=== PATIENT | female | born 1965 | race Caucasian/White ===

== ENCOUNTER 2017-08-28 18:48 | Emergency (ER) | payer BC, OTHER ==
[2017-08-28] MEDS ORDERED: Morphine 10 MG/ML Syringe IV ONE (19:59)
--- NOTE | 2017-08-28 20:15 | EDM.PDOC ---
ED HPI GENERAL MEDICAL PROBLEM - General Chief Complaint: Lower Extremity Injury/Pain Stated Complaint: PAIN LT ANKLE Time Seen by Provider: 08/28/17 18:50 Source of Information: Reports: Patient, EMS History Limitations: Reports: No Limitations - History of Present Illness INITIAL COMMENTS - FREE TEXT/NARRATIVE: HISTORY AND PHYSICAL: History of present illness: [Patient is brought to the emergency room by EMS complaints of left ankle pain after she slipped on some ice while walking downtown. She states that she had 6 vodka drinks and was snacking prior to slipping and falling. She complains of left ankle pain bilaterally. No history of surgery or previous fractures to this extremity. Comes in via EMS with her ankle in a splint. Denies any chronic medical conditions, and does not take medication regularly. ] Review of systems: As per history of present illness and below otherwise all systems reviewed and negative. Past medical history: As per history of present illness and as reviewed below otherwise noncontributory. Surgical history: As per history of present illness and as reviewed below otherwise noncontributory. Social history: No reported history of drug or alcohol abuse. Family history: As per history of present illness and as reviewed below otherwise noncontributory. Physical exam: HEENT: Atraumatic, normocephalic. Lungs: Clear to auscultation bilaterally Cardiac: Regular rate and rhythm. no murmur gallop click or rub. Extremities: Swelling to bilateral malleoli. Posterior tibial and dorsalis pedal pulses are strong. Neuro: Awake, alert, oriented. Motor and sensory unremarkable throughout. Exam nonfocal. Diagnostics: [Left ankle x-ray] Therapeutics: [Morphine 2 mg IV] Impression: [Fracture dislocation of the left tibiotalar joint Left medial malleolar fracture] Plan: [Consult with Dr. Soco Luz in the ER, who reduces and splints ankle in the ER. She will follow up with the patient in clinic on August 31.] Definitive disposition and diagnosis as appropriate pending reevaluation and review of above. Left ankle Pain Score (Numeric/FACES): 10 - Related Data Allergies Allergy/AdvReac Type Severity Reaction Status Date / Time aspirin Allergy Hives Verified 08/28/17 19:03 Home Meds: Home Meds . [No Known Home Meds] 08/28/17 [History] Past Medical History - Past Health History Medical/Surgical History: Denies Medical/Surgical History Social & Family History - Family History Family Medical History: Noncontributory - Tobacco Use Smoking Status *Q: Current Status Unknown - Recreational Drug Use Recreational Drug Use: No Review of Systems - Review of Systems Review Of Systems: ROS reveals no pertinent complaints other than HPI. ED EXAM, GENERAL - Physical Exam Exam: See Below Course - Vital Signs Last Recorded V/S: Last Vital Signs Temp 100.1 F 08/28/17 18:56 Pulse 107 H 08/28/17 20:10 Resp 18 08/28/17 20:10 BP 145/97 H 08/28/17 20:10 Pulse Ox 97 08/28/17 20:10 - Orders/Labs/Meds Orders: Active Orders 24 hr Category Date Time Status Notify Provider Consults [RC] ASDIRECTED Care 08/28/17 20:27 Active Consult to Physician [CONS] Stat Cons 08/28/17 20:26 Active Ankle 2V Rt [CR] Stat Exams 08/28/17 20:50 Taken Ankle Min 3V Lt [CR] Stat Exams 08/28/17 19:08 Taken Meds: Medications Discontinued Medications Generic Name Dose Route Start Last Admin Trade Name Mendelq PRN Reason Stop Dose Admin Hydromorphone HCl 1 mg 08/28/17 20:37 08/28/17 20:48 Dilaudid IM 08/28/17 20:38 Not Given ONETIME ONE Hydromorphone HCl Confirm 08/28/17 20:36 08/28/17 20:48 Dilaudid Administered 08/28/17 20:37 Not Given Dose 1 mg .ROUTE .STK-MED ONE Hydromorphone HCl 1 mg 08/28/17 20:44 08/28/17 20:40 Dilaudid IV 08/28/17 20:45 1 mg ONETIME ONE Administration Morphine Sulfate 2 mg 08/28/17 19:59 08/28/17 20:05 Morphine IV 08/28/17 20:00 2 mg ONETIME ONE Administration Departure - Departure Time of Disposition: 21:00 Disposition: Home, Self-Care 01 Condition: Good Clinical Impression: Tibial fracture - Discharge Information Referrals: PCP,None [Primary Care Provider] - Forms: ED Department Discharge, ED Summary Discharge Additional Instructions: The following information is given to patients seen in the emergency department who are being discharged to home. This information is to outline your options for follow-up care. We provide all patients seen in our emergency department with a follow-up referral. The need for follow-up, as well as the timing and circumstances, are variable depending upon the specifics of your emergency department visit. If you don't have a primary care physician on staff, we will provide you with a referral. We always advise you to contact your personal physician following an emergency department visit to inform them of the circumstance of the visit and for follow-up with them and/or the need for any referrals to a consulting specialist. The emergency department will also refer you to a specialist when appropriate. This referral assures that you have the opportunity for follow-up care with a specialist. All of these measure are taken in an effort to provide you with optimal care, which includes your follow-up. Under all circumstances we always encourage you to contact your private physician who remains a resource for coordinating your care. When calling for follow-up care, please make the office aware that this follow-up is from your recent emergency room visit. If for any reason you are refused follow-up, please contact the [facility] emergency department at and asked to speak to the emergency department charge nurse. [facility] [address], [address] [place] [address] Follow-up with Dr. Luz as she requests; next Wednesday in her clinic Take medications as she prescribed. Return to ER as needed as discussed. - My Orders Last 24 Hours: My Active Orders 08/28/17 19:08 Ankle Min 3V Lt [CR] Stat 08/28/17 20:26 Consult to Physician [CONS] Stat 08/28/17 20:27 Notify Provider Consults [RC] ASDIRECTED - Assessment/Plan Last 24 Hours: My Active Orders 08/28/17 19:08 Ankle Min 3V Lt [CR] Stat 08/28/17 20:26 Consult to Physician [CONS] Stat 08/28/17 20:27 Notify Provider Consults [RC] ASDIRECTED
[2017-08-28] MEDS ORDERED: HYDROmorphone 1 MG/ML Syringe ONE (20:36)
[2017-08-28] MEDS ORDERED: HYDROmorphone 1 MG/ML Syringe IM ONE (20:37)
[2017-08-28] MEDS ORDERED: HYDROmorphone 1 MG/ML Syringe IV ONE (20:44)
--- NOTE | 2017-08-28 21:54 | PCM.HP ---
H&P History of Present Illness Left ankle Pain Score (Numeric/FACES): 10 - Related Data Allergies/Adverse Reactions: Allergies Allergy/AdvReac Type Severity Reaction Status Date / Time aspirin Allergy Hives Verified 08/28/17 19:03 Home Medications: Home Meds . [No Known Home Meds] 08/28/17 [History] Past Medical History - Past Health History Medical/Surgical History: Denies Medical/Surgical History - Past Surgical History Musculoskeletal Surgical History: Reports: ORIF (right ankle) Social & Family History - Family History Family Medical History: Noncontributory - Tobacco Use Smoking Status *Q: Current Status Unknown - Recreational Drug Use Recreational Drug Use: No Exam - Vital Signs Vital Signs: Last Vital Signs Temp 100.1 F 08/28/17 18:56 Pulse 107 H 08/28/17 20:10 Resp 18 08/28/17 20:10 BP 145/97 H 08/28/17 20:10 Pulse Ox 97 08/28/17 20:10 Weight: 86.183 kg *Q Meaningful Use (ADM) - VTE *Q VTE Criteria *Q: - Stroke *Q Stroke Criteria *Q: - AMI *Q AMI Criteria *Q: Orders Last 24hrs: Active Orders 24 hr Category Date Time Status Notify Provider Consults [RC] ASDIRECTED Care 08/28/17 20:27 Active Consult to Physician [CONS] Stat Cons 08/28/17 20:26 Active Ankle 2V Rt [CR] Stat Exams 08/28/17 20:50 Taken Ankle Min 3V Lt [CR] Stat Exams 08/28/17 19:08 Taken
--- NOTE | 2017-08-28 21:57 | PCM.OPNOTE ---
- General Post-Op/Procedure Note Date of Surgery/Procedure: 08/28/17 Operative Procedure(s): CR left ankle dislocation Post-Op Diagnosis: L ankle fracture/dislocation Anesthesia Technique: Other (see below) (none) Primary Surgeon: Soco EDEN in mLs: 0 Condition: Good Free Text/Narrative:: #[id number]
--- NOTE | 2017-08-28 23:20 | OR ---
SURGEON: Soco Luz MD DATE OF PROCEDURE: 08/28/2017 PREOPERATIVE DIAGNOSIS: Left bimalleolar ankle fracture/dislocation. POSTOPERATIVE DIAGNOSIS: Left bimalleolar ankle fracture/dislocation. PROCEDURE: Closed reduction, left ankle dislocation. GENERAL REPAIRER: None. ANESTHESIA: None. ESTIMATED BLOOD LOSS: 0 mL. TOURNIQUET TIME: 0 minutes. COMPLICATIONS: None. DVT PROPHYLAXIS: None indicated. IMPLANTS USED: None. BRIEF HISTORY: Ely is a 52-year-old female who sustained a fall earlier this evening. She complained of immediate pain in her left ankle. She was evaluated in the emergency room. X-ray showed a left bimalleolar ankle fracture/dislocation. That time, I recommend closed reduction in the emergency room. Risks of the procedure were discussed with the patient and were documented preoperatively. She agreed to proceed. DESCRIPTION OF PROCEDURE: The patient was properly identified. A time-out was performed to ensure correct site and procedure. Preoperative antibiotics were not given. The surgical site was marked preoperatively. A 1 mg of Dilaudid was administered IV. Following this, axial traction was applied to the heel and the ankle dislocation was reduced without difficulty. The patient tolerated the procedure well. Postreduction x-rays confirmed acceptable reduction of the dislocation. She was then placed in a well-padded posterior splint with medial and lateral stabilizing slabs. She will be discharged home from the emergency room tonight. She will follow up with us next week in anticipation of surgical treatment. She is advised to contact us if she has questions or concerns. RESHMA / RAHAT /[id number]
--- NOTE | 2017-08-29 00:50 | CONS ---
DATE OF CONSULTATION: 08/28/2017 DATE OF : 1965 PRIMARY CARE PHYSICIAN: None PCP REASON FOR CONSULT: Left ankle fracture/dislocation. HISTORY OF PRESENT ILLNESS: Ely is a 52-year-old female, who was seen in the emergency room tonight at the request of the emergency room staff for evaluation of the patient with a left bimalleolar ankle fracture/dislocation. The patient states that she fell earlier tonight, injuring her left ankle. She denies any other injuries from the fall. She complained of immediate pain and deformity. She was unable to weight bear. She was brought to the emergency room. X-rays showed a left bimalleolar ankle fracture/dislocation. The patient has no previous history of left ankle pain. She does have a history of previous open reduction and internal fixation of the right ankle. The patient denies distal paralysis or paresthesias. She has had alcohol to drink prior to her presentation to the emergency room. PAST MEDICAL HISTORY: The patient denies. PAST SURGICAL HISTORY: Open reduction and internal fixation of the right ankle. MEDICATIONS: None. ALLERGIES: No known allergies. SOCIAL HISTORY: She currently admits to tobacco use. She denies recreational drug use. She does admit to daily alcohol use. FAMILY HISTORY: Noncontributory. REVIEW OF SYSTEMS: She denies recent fever, chills, cough, shortness of breath, chest pain, nausea, or vomiting. PHYSICAL EXAMINATION: VITAL SIGNS: Height is 5 feet 3 inches, weight 86 kg, blood pressure 145/97, pulse 107, respiratory rate 18, O2 saturation is 97% on room air. GENERAL: On physical exam, this is an alert, well-nourished female, who is lying on the ER stretcher in moderate distress. HEENT: Head is normocephalic and atraumatic. NECK: Supple. CHEST: Showed symmetrical excursions, unlabored. HEART: Regular rate. ABDOMEN: Benign. EXTREMITIES: Exam of the left lower extremity shows obvious deformity at the ankle. Skin integrity is intact. She has no tenderness in leg or knee. She is able to move her toes to command. Sensation is intact throughout the foot. Dorsalis pedis pulse is 2+. IMAGING: X-rays of the left ankle show a posterior dislocation along with a lateral malleolus and posterior malleolus fracture. ASSESSMENT: Left bimalleolar ankle fracture/dislocation. PLAN: At this time, treatment options were discussed with the patient. I recommended closed reduction in the emergency room. Risks of the procedure were discussed with the patient which include, but are not limited to, nonunion, loss of reduction, inability to reduce. The patient seems to understand these risks and would like to proceed. We will plan on performing this later tonight. Following the reduction, the patient will be placed into a well-padded splint. I discussed with the patient that she will require surgical treatment of this fracture in the future. She is instructed to continue with strict elevation over the next few days. We will plan on seeing her back in clinic on Wednesday for re-evaluation. If she does not have significant swelling, we will plan on fixing the fracture later this week. She was discharged home with [facility] [address]. RESHMA / RAHAT /[id number]
--- NOTE | 2017-08-30 16:12 | CR ---
EXAM DATE: 08/28/17 PATIENT'S AGE: 52 Patient: MARIANNA WINTERS Facility: [place], [place] Site . Site : 1965 Study: XRay Extremity Left ankle [id number] 7:17:49 PM Ordering Physician: Doctor Marquez Final Report: INDICATION: fell on ice HISTORY: Fall on ice. COMPARISON: None. TECHNIQUE: Left ankle, 3 portable views. FINDINGS: There is an acute fracture dislocation of the left tibiotalar joint. Oblique fracture deformity of the left medial malleolus. On the lateral view, the distal tibia is anteriorly oriented with respect to the talus. Disruption of the posterior malleolus. There is a bone fragment on the portable AP view adjacent to the medial malleolus. No underlying bone lesion is identified. Subtalar and talonavicular joints are normal. Calcaneal spurring. Boehler`s angle is preserved. Soft tissue swelling. No radiopaque foreign body. On the oblique view, there is medial displacement of the distal tibia with respect to the talar dome. IMPRESSION: 1. Acute fracture dislocation of the left tibiotalar joint. 2. CT may be utilized to further assess, and to assess for injuries of adjacent tendon/ligaments. Dictated by Andre Lu MD @ 08/28/2017 7:48:55 PM Dictated by: Andre Lu MD @ 08/28/2017 19:49:05 (Electronic Signature) Report Signed by Proxy. MOIRA
--- NOTE | 2017-08-30 16:18 | CR ---
EXAM DATE: 08/28/17 PATIENT'S AGE: 52 Patient: MARIANNA WINTERS Facility: [place], [place] Site . Site : 1965 Study: XRay Extremity Left [id number] 8:57:46 PM Ordering Physician: Doctor Marquez Final Report: Indication: POST CLOSED REDUCTION. Technique: Left ankle two views. Comparison: Left ankle 08/28/2017 at 7:08 p.m.. Findings: Displaced obliquely oriented fractures of the lateral malleolus and posterior malleolus are again demonstrated. Displacement of fracture fragments persists, however, alignment has improved. The talar dome appears intact. Soft tissue swelling. Impression: Improved alignment status post reduction. Dictated by Renny Hemphill MD @ 08/28/2017 9:33:17 PM Dictated by: Renny Hemphill MD @ 08/28/2017 21:33:24 (Electronic Signature) Report Signed by Proxy. MOIRA
== END 2017-08-28 21:45 | disposition home or self-care (01) ==
LOC: MW.ED 18:48
DX: S82.52XA Displaced fracture of medial malleolus of left tibia, initial encounter for closed fracture (principal); S93.05XA Dislocation of left ankle joint, initial encounter; Z88.6 Allergy status to analgesic agent; W00.2XXA Other fall from one level to another due to ice and snow, initial encounter
CPT/HCPCS: 27840; 73600; 73610; 96374; 96375; 99284; J1170; J2270

== ENCOUNTER 2017-09-01 08:51 | Day surgery (SDC) | payer BC ==
[~2017-09-01 08:51] MED LIST: Acetaminophen/HYDROcodone 325-10 MG Tab PO PRN; Lactated Ringers 1,000 ML IV SCH; ceFAZolin 2 GM in Premix Bag 1 BAG IV SCH
[2017-09-01] MEDS ORDERED: Sodium Chloride 0.9% 20 ML ONE (09:23)
[2017-09-01] MEDS ORDERED: Lidocaine 2% 5 ML SDV ONE (09:23)
[2017-09-01] MEDS ORDERED: ceFAZolin 1 GM Vial ONE (09:23)
[2017-09-01] MEDS ORDERED: Propofol 200 MG/20 ML SDV ONE (09:23)
[2017-09-01] MEDS ORDERED: fentaNYL 250 MCG/5 ML SDV ONE (09:23)
[2017-09-01] MEDS ORDERED: Midazolam 1 MG/ML 2 ML SDV ONE (09:23)
[2017-09-01] MEDS ORDERED: Ondansetron 4 MG/2 ML SDV ONE (09:24)
--- NOTE | 2017-09-01 11:13 | PCM.PREANE ---
Preanesthetic Assessment - Procedure Proposed Procedure: Fracture bimalleolar left ankle fracture ORIF - Anesthesia/Transfusion/Family Hx Anesthesia History: Prior Anesthesia Without Reaction Family History of Anesthesia Reaction: No Transfusion History: No Prior Transfusion(s) Intubation History: Unknown Additional History: ETOH hx. Smoker - daily. - Review of Systems General: Other (pain in left ankle due to fracture 4 days ago.) Pulmonary: Other (smoker) Cardiovascular: No Symptoms Gastrointestinal: Other (certain foods cause heartburn) Neurological: Difficulty Walking (due to left ankle fracture) Other: Reports: None - Physical Assessment NPO Status Date: 08/31/17 NPO Status Time: 23:00 O2 Sat by Pulse Oximetry: 95 Respiratory Rate: 18 Vital Signs: Last Vital Signs Temp 98.2 F 09/01/17 10:05 Pulse 112 H 09/01/17 10:05 Resp 18 09/01/17 10:05 BP 164/100 H 09/01/17 10:05 Pulse Ox 95 09/01/17 10:05 Height: 5 ft 3 in Weight: 185 lb ASA Class: 2 Mental Status: Alert & Oriented x3 Airway Class: Mallampati = 1 Dentition: Reports: Normal Dentition, [place](s) (#9) Thyro-Mental Finger Breadths: 3 Mouth Opening Finger Breadths: 3 ROM/Head Extension: Full Lungs: Clear to Auscultation, Normal Respiratory Effort, Decreased Breath Sounds (distant) Cardiovascular: Regular Rate, Regular Rhythm - Allergies Allergies/Adverse Reactions: Allergies Allergy/AdvReac Type Severity Reaction Status Date / Time aspirin Allergy Swelling Verified 08/31/17 12:40 - Blood Blood Available: No Product(s) Available: None - Anesthesia Plan Pre-Op Medication Ordered: None - Acknowledgements Anesthesia Type Planned: General Anesthesia (LMA) Pt an Appropriate Candidate for the Planned Anesthesia: Yes Alternatives and Risks of Anesthesia Discussed w Pt/Guardian: Yes Pt/Guardian Understands and Agrees with Anesthesia Plan: Yes PreAnesthesia Questionnaire - Past Health History Medical/Surgical History: Denies Medical/Surgical History HEENT History: Reports: Other (See Below) Other HEENT History: has low night vision, uses reading glasses Respiratory History: Reports: Asthma Other Respiratory History: states "mild", uses OTC inhaler Gastrointestinal History: Reports: GERD Other Gastrointestinal History: no meds for GERD Musculoskeletal History: Reports: Fracture Other Musculoskeletal History: right ankle Neurological History: Reports: Migraines Endocrine/Metabolic History: Reports: Obesity/BMI 30+ - Past Surgical History Head Surgeries/Procedures: Reports: None Musculoskeletal Surgical History: Reports: ORIF Other Musculoskeletal Surgeries/Procedures:: ORIF right ankle, has hardware - SUBSTANCE USE Smoking Status *Q: Current Every Day Smoker Tobacco Use Within Last Twelve Months: Cigarettes Recreational Drug Use History: No - HOME MEDS Home Medications: Home Meds . [No Known Home Meds] 08/28/17 [History] Otc Inhaler 1 dose INH ASDIRECTED PRN 08/31/17 [History] - CURRENT (IN HOUSE) MEDS Current Meds: Current Medications Hydrocodone Bitart/Acetaminophen ([place] 325-10 Mg) 1 - 2 tab PO Q4H PRN PRN Reason: Pain Cefazolin Sodium/Dextrose 2 gm (/ Premix) 50 mls @ 100 mls/hr IV ONCALL APRIL Lactated Ringer's (Ringers, Lactated) 1,000 mls @ 100 mls/hr IV ASDIRECTED APRIL Last Admin: 09/01/17 09:40 Dose: 100 mls/hr Discontinued Medications Cefazolin Sodium (Ancef) Confirm Administered Dose 2 gm .ROUTE .STK-MED ONE Stop: 09/01/17 09:24 Fentanyl (Sublimaze) Confirm Administered Dose 250 mcg .ROUTE .STK-MED ONE Stop: 09/01/17 09:24 Sodium Chloride (Normal Saline) Confirm Administered Dose 20 mls @ as directed .ROUTE .STK-MED ONE Stop: 09/01/17 09:24 Lidocaine (Xylocaine-Mpf 2%) Confirm Administered Dose 10 ml .ROUTE .STK-MED ONE Stop: 09/01/17 09:24 Midazolam HCl (Versed 1 Mg/Ml) Confirm Administered Dose 2 mg .ROUTE .STK-MED ONE Stop: 09/01/17 09:24 Ondansetron HCl (Zofran) Confirm Administered Dose 4 mg .ROUTE .STK-MED ONE Stop: 09/01/17 09:25 Propofol (Diprivan 20 Ml) Confirm Administered Dose 400 mg .ROUTE .STK-MED ONE Stop: 09/01/17 09:24
[2017-09-01] MEDS ORDERED: HYDROmorphone 2 MG/ML Syringe ONE (11:50)
[2017-09-01] MEDS ORDERED: fentaNYL 100 MCG/2 ML SDV IVPUSH PRN (12:11)
[2017-09-01] MEDS ORDERED: ePHEDrine 50 MG/ML SDV ONE (12:26)
--- NOTE | 2017-09-01 12:44 | PCM.OPNOTE ---
- General Post-Op/Procedure Note Date of Surgery/Procedure: 09/01/17 Operative Procedure(s): ORIF left bimalleolar ankle fracture (lateral malleolus only) Post-Op Diagnosis: L bimalleolar ankle fracture Anesthesia Technique: General LMA Primary Surgeon: Soco Luz Nail Specialist: Lan Payan in mLs: 10 Condition: Good Free Text/Narrative:: tt=29 min #[id number]
--- NOTE | 2017-09-01 13:37 | OR ---
SURGEON: Soco Luz MD DATE OF PROCEDURE: 09/01/2017 PREOPERATIVE DIAGNOSIS: Left bimalleolar ankle fracture. POSTOPERATIVE DIAGNOSIS: Left bimalleolar ankle fracture. PROCEDURE: Open reduction and internal fixation left bimalleolar ankle fracture (lateral malleolus only). PROJECT MANAGEMENT SPECIALIST: Lan Payan PA-C. ANESTHESIA: General. ESTIMATED BLOOD LOSS: 10 mL. TOURNIQUET TIME: 29 minutes. COMPLICATIONS: None. DVT PROPHYLAXIS: Not indicated. IMPLANTS USED: Bebeto 8-hole 1/3rd semitubular plate with combination of 3.5 mm cortical nonlocking screws and 4.0 mm cancellous nonlocking screws. BRIEF HISTORY: Ely is a 52-year-old female, who fell on August 28, 2017. She complained of immediate left ankle pain. She was seen in the emergency room and found to have a fracture dislocation involving the lateral and posterior malleolus. Closed reduction was performed in the emergency room. At that time, I recommended surgical intervention. The risks and goals of the procedure were discussed with the patient and were documented preoperatively. She agreed to proceed. DESCRIPTION OF PROCEDURE: The patient was properly identified and brought to the operating room. She was transferred from the OR cart and placed on the operating table in supine position. General anesthesia was administered. After adequate anesthesia was obtained, a well-padded tourniquet was applied to the left lower extremity. The left lower extremity was then prepped in standard fashion using ChloraPrep solution. It was then sterilely draped. A time-out was performed to ensure correct site and procedure. Preoperative antibiotics were given. The surgical site had been marked preoperatively. An Esmarch was used to exsanguinate the left lower extremity and the tourniquet was inflated to 250 mmHg. A lateral incision was made over the distal fibula. Subcutaneous tissues were dissected. Care was taken to look for the superficial peroneal nerve, however, this was not encountered. The fracture was quite oblique in nature. The proximal piece appeared to be subluxed behind the incisure of the tibia. This was pulled back into position. This made reduction much easier. The fractured hematoma was evacuated using saline solution. A bone reduction clamp was then used to keep the fibula out to length and it was provisionally clamped. A 3.5 mm cortical screw was then placed in standard lag fashion for provisional fixation of the fracture fragments. Clamps were then removed. It was felt that an 8-hole plate was appropriate for fixation. This was contoured to the bone. A 3.5 mm screw was placed proximally and a 4.0 mm screw was placed distal to the fracture. The plate compressed nicely to the bone. An additional 4.0 mm cancellous screw was placed distally and the remainder of holes proximal to the fracture were filled using 3.5 mm cortical screws. C-arm imaging confirmed acceptable reduction of the fracture with the fibula being out to length. A lateral view did show a small sliver of bone posteriorly, which was unattached. The majority of the fibula was intact and this was left alone. It was imbedded within the soft tissues. Final C-arm images confirmed acceptable reduction of the fracture. The ankle mortise was then stressed with an external rotation stress view. This showed no widening of the syndesmosis. A bone hook was also used to place a lateral force on the distal fibula and no injury to the syndesmosis was noted. The wound was then copiously irrigated with saline solution. The deep tissues were closed with 0 Vicryl. The tourniquet was deflated. No excess bleeding was noted. The subcutaneous tissues were closed with 2-0 Monocryl and the skin was closed with kevin. Xeroform gauze was placed over the wound and a bulky dressing was applied. She was then placed in a well-padded posterior splint with medial and lateral stabilizing slabs. She was awakened from her anesthetic and transferred back to the operating room cart. She was brought to recovery room in stable condition. All needle and sponge counts were correct. RESHMA / RAHAT /[id number]
--- NOTE | 2017-09-01 16:23 | CR ---
EXAMINATION: Left ankle HISTORY: Surgery COMPARISON: 08/21/2017 TECHNIQUE: 5 fluoroscopic images provided FINDINGS/IMPRESSION: Operative control films demonstrate screw and plate fixation of a distal fibular fracture. A mildly displaced posterior malleolus fracture again noted.
== END 2017-09-01 15:25 | disposition home or self-care (01) ==
LOC: MW.SDS 08:51
PROVIDERS: ATTEND Orthopaedic Surgery
DX: S82.842A Displaced bimalleolar fracture of left lower leg, initial encounter for closed fracture (principal); Z98.890 Other specified postprocedural states
CPT/HCPCS: 27814; 76000; A9270; C1713; J0690; J1170; J2250; J2405; J3010; J7120; 01480; J2704

== ENCOUNTER 2019-07-26 06:12 | Emergency (ER) | payer BC ==
[2019-07-26] MEDS ORDERED: Ketorolac 60 MG/2 ML SDV IM ONE (06:28)
--- NOTE | 2019-07-26 06:31 | EDM.PDOC ---
<Kirstie Ramirez - Last Filed: 07/26/19 07:53> ED HPI GENERAL MEDICAL PROBLEM - General Chief Complaint: Upper Extremity Injury/Pain Stated Complaint: POSSIBLE BROKEN RIGHT ARM Time Seen by Provider: 07/26/19 06:24 - Related Data Allergies Allergy/AdvReac Type Severity Reaction Status Date / Time aspirin Allergy Swelling Verified 08/31/17 12:40 Home Meds: Home Meds traMADol HCl [Tramadol HCl] 50 mg PO Q6H PRN #16 tablet 07/26/19 [Rx] Course - Vital Signs Last Recorded V/S: Last Vital Signs Temp 36.6 C 07/26/19 06:26 Pulse 95 07/26/19 08:40 Resp 18 07/26/19 08:40 BP 167/108 H 07/26/19 08:40 Pulse Ox 98 07/26/19 08:40 - Orders/Labs/Meds Orders: Active Orders 24 hr Category Date Time Status Splinting [RC] ASDIRECTED Care 07/26/19 07:49 Active Meds: Medications Discontinued Medications Generic Name Dose Route Start Last Admin Trade Name Freq PRN Reason Stop Dose Admin Ketorolac Tromethamine 60 mg 07/26/19 06:28 07/26/19 06:35 Toradol IM 07/26/19 06:29 60 mg ONETIME ONE Administration Departure - Departure Time of Disposition: 07:53 Disposition: Home, Self-Care 01 Clinical Impression: Injury of elbow Qualifiers: Encounter type: initial encounter Laterality: right Qualified Code(s): S59.901A - Unspecified injury of right elbow, initial encounter Fracture of radial head, left, closed Qualifiers: Encounter type: initial encounter Fracture alignment: displaced Qualified Code( s): S52.122A - Displaced fracture of head of left radius, initial encounter for closed fracture - Discharge Information *PRESCRIPTION DRUG MONITORING PROGRAM REVIEWED*: Not Applicable *COPY OF PRESCRIPTION DRUG MONITORING REPORT IN PATIENT NICHOLE: Not Applicable Prescriptions: traMADol HCl [Tramadol HCl] 50 mg PO Q6H PRN #16 tablet PRN Reason: Pain Instructions: Radial Head Fracture, [id number] Referrals: James Vogel DO [Physician] - 08/01/19 10:00 am Forms: ED Department Discharge Additional Instructions: The following information is given to patients seen in the emergency department who are being discharged to home. This information is to outline your options for follow-up care. We provide all patients seen in our emergency department with a follow-up referral. The need for follow-up, as well as the timing and circumstances, are variable depending upon the specifics of your emergency department visit. If you don't have a primary care physician on staff, we will provide you with a referral. We always advise you to contact your personal physician following an emergency department visit to inform them of the circumstance of the visit and for follow-up with them and/or the need for any referrals to a consulting specialist. The emergency department will also refer you to a specialist when appropriate. This referral assures that you have the opportunity for followup care with a specialist. All of these measure are taken in an effort to provide you with optimal care, which includes your followup. Under all circumstances we always encourage you to contact your private physician who remains a resource for coordinating your care. When calling for followup care, please make the office aware that this follow-up is from your recent emergency room visit. If for any reason you are refused follow-up, please contact the [facility] emergency department at and ask to speak to the emergency department charge nurse. [facility] - [facility] [address], [address] [place] [address] <Juliana España - Last Filed: 07/26/19 19:18> ED HPI GENERAL MEDICAL PROBLEM - History of Present Illness INITIAL COMMENTS - FREE TEXT/NARRATIVE: HISTORY AND PHYSICAL: History of present illness: The patient is a 54-year-old female who presents with complaints of right elbow pain which occurred last evening when she fell on it while playing with her dog. The dog knocked her over while she was playing with it and she believes that she landed directly on the elbow not on an outstretched arm. She had pain but thought it would give it better and she did take 2 aspirin at home. She has no head neck or back pain and she did not pass out or black out. She has no neurosensory changes in the distal hand and wrist and has no hand or wrist pain and no forearm pain and no proximal shoulder or clavicle pain on the right side. Review of systems: As per history of present illness and below otherwise all systems reviewed and negative. Past medical history: As per history of present illness and as reviewed below otherwise noncontributory. Surgical history: As per history of present illness and as reviewed below otherwise noncontributory. Social history: No reported history of drug or alcohol abuse. Family history: As per history of present illness and as reviewed below otherwise noncontributory. Physical exam: General: Well-developed well-nourished female who is nontoxic and vital signs are noted by me. She ambulated into the ED without distress HEENT: Atraumatic, normocephalic, negative for conjunctival pallor or scleral icterus, mucous membranes moist, throat clear, neck supple, nontender, trachea midline. Lungs: Clear to auscultation, breath sounds equal bilaterally, chest nontender. Heart: S1S2, regular rate and rhythm no overt murmurs Abdomen: Soft, nondistended, nontender. NABS Pelvis: Stable nontender. Genitourinary: Deferred. Rectal: Deferred. Extremities: Atraumatic and full range of motion of all sternum and is with the exception of the left elbow where there is some diffuse soft tissue swelling and no discrete tenderness at the olecranon but more tenderness on the dorsal aspect of the proximal forearm near the radial head. There is some mild supracondylar tenderness with palpation. There is no distal forearm wrist or hand or finger tenderness defects or deformities and no proximal humerus shoulder clavicle defects tenderness or deformities. All other extremities have no tenderness defects or deformities and the legs are, negative for cords or calf pain. Neurovascular unremarkable. Neuro: Awake, alert, oriented. Cranial nerves II through XII unremarkable. Cerebellum unremarkable. Motor and sensory unremarkable throughout. Exam nonfocal. Diagnostics: X-ray of right elbow and forearm Therapeutics: Sling and ice pack, Toradol IM [id number]: case endorsed to Dr. Ramirez to follow-up the x-ray and disposition the patient pending that result. Impression: Right elbow injury Definitive disposition and diagnosis as appropriate pending reevaluation and review of above. This is Dr. España dictating addendum note on July 26 at 7:15 PM. Endorsed this case to Dr. Ramirez this morning and she did follow-up the x-ray and place the patient in a splint and expedited follow-up with our orthopedic surgeon front end ui developer Dr. Vallecillo. According to my conversation with her she did not contact him but did instruct the patient strictly to follow-up with him. Please see her notes for splint and follow-up information Past Medical History - Past Health History Medical/Surgical History: Denies Medical/Surgical History HEENT History: Reports: Other (See Below) Other HEENT History: has low night vision, uses reading glasses Respiratory History: Reports: Asthma Other Respiratory History: states "mild", uses OTC inhaler Gastrointestinal History: Reports: GERD Other Gastrointestinal History: no meds for GERD Musculoskeletal History: Reports: Fracture Other Musculoskeletal History: right ankle Neurological History: Reports: Migraines Endocrine/Metabolic History: Reports: Obesity/BMI 30+ - Past Surgical History Head Surgeries/Procedures: Reports: None Musculoskeletal Surgical History: Reports: ORIF Other Musculoskeletal Surgeries/Procedures:: ORIF right ankle, has hardware Social & Family History - Family History Family Medical History: Noncontributory Review of Systems - Review of Systems Review Of Systems: ROS reveals no pertinent complaints other than HPI. ED EXAM, GENERAL - Physical Exam Exam: See Below (See dictation) Course - Vital Signs Last Recorded V/S: Last Vital Signs Temp 36.6 C 07/26/19 06:26 Pulse 95 07/26/19 08:40 Resp 18 07/26/19 08:40 BP 167/108 H 07/26/19 08:40 Pulse Ox 98 07/26/19 08:40 Departure - Departure Condition: Good
--- NOTE | 2019-07-26 07:39 | CR ---
INDICATION: Last night. Previous fracture as a kid TECHNIQUE: Three view is not optimal and 2 views left forearm. FINDINGS: New mildly displaced acute fracture involving the left radial head with intra-articular extension. Ossific densities along the right elbow joint anteriorly and posteriorly are new but some are all these may be chronic and related to old trauma/fracture and/or intra-articular loose bodies. Lucency involving the olecranon process could be degenerative or posttraumatic. No dislocation. Moderately large-sized new right elbow effusion. Soft tissue swelling of moderate degree right elbow. Deformity involving the proximal shaft of the right radius and ulna likely related to old trauma/fracture. Degenerative arthritis right wrist and elbow. Remainder negative. Dictated by Nhan Castillo MD @ Jul 26 2019 7:37AM Signed by Dr. Nhan Castillo @ Jul 26 2019 7:38AM
--- NOTE | 2019-07-26 07:39 | CR ---
INDICATION: Last night. Previous fracture as a kid TECHNIQUE: Three view is not optimal and 2 views left forearm. FINDINGS: New mildly displaced acute fracture involving the left radial head with intra-articular extension. Ossific densities along the right elbow joint anteriorly and posteriorly are new but some are all these may be chronic and related to old trauma/fracture and/or intra-articular loose bodies. Lucency involving the olecranon process could be degenerative or posttraumatic. No dislocation. Moderately large-sized new right elbow effusion. Soft tissue swelling of moderate degree right elbow. Deformity involving the proximal shaft of the right radius and ulna likely related to old trauma/fracture. Degenerative arthritis right wrist and elbow. Remainder negative. Dictated by Nhan Castillo MD @ Jul 26 2019 7:32AM Signed by Dr. Nhan Castillo @ Jul 26 2019 7:37AM
== END 2019-07-26 08:40 | disposition home or self-care (01) ==
LOC: MW.ED 06:12
DX: S52.122A Displaced fracture of head of left radius, initial encounter for closed fracture (principal); J45.909 Unspecified asthma, uncomplicated; Z88.6 Allergy status to analgesic agent; E66.9 Obesity, unspecified; Z68.31 Body mass index [BMI] 31.0-31.9, adult; W01.0XXA Fall on same level from slipping, tripping and stumbling without subsequent striking against object, initial encounter; Y93.89 Activity, other specified
CPT/HCPCS: 29105; 73080; 73090; 96372; 99283; J1885

== ENCOUNTER 2021-07-13 20:04 | Emergency (ER) | payer BC ==
[2021-07-13] MEDS ORDERED: Acetaminophen/HYDROcodone 325-10 MG Tab PO ONE (20:42)
--- NOTE | 2021-07-13 20:43 | EDM.PDOC ---
ED HPI GENERAL MEDICAL PROBLEM - General Chief Complaint: Upper Extremity Injury/Pain Stated Complaint: POSSIABLE BROKEN ARM Time Seen by Provider: 07/13/21 20:36 Source of Information: Reports: Patient History Limitations: Reports: No Limitations - History of Present Illness INITIAL COMMENTS - FREE TEXT/NARRATIVE: HISTORY AND PHYSICAL: History of present illness: The patient is a 56-year-old female who presents to the emergency department with complaints of right elbow pain after her dog jumped on her causing her to fall backwards striking her right elbow. The patient denies any other injuries. The patient did not take anything prior to arrival. Patient denies any fever, chills, headache, change in vision, syncope or near syncope. Denies any chest pain, back pain, shortness of breath or cough. Denies any abdominal pain, nausea, vomiting, diarrhea, constipation or dysuria. Has not noted any blood in urine or stool. Patient has been eating and drinking appropriately. Review of systems: As per history of present illness and below otherwise all systems reviewed and negative. Past medical history: As per history of present illness and as reviewed below otherwise noncontributory. Surgical history: As per history of present illness and as reviewed below otherwise noncontributory. Social history: See social history for further information Family history: As per history of present illness and as reviewed below otherwise noncontributory. Physical exam: General: Well developed and well nourished. Alert and orientated x 3. Nontoxic in appearance and in no acute distress. Vital signs are stable and have been reviewed by me. Nursing notes were reviewed. HEENT: Atraumatic, normocephalic, pupils equal and reactive bilaterally, negative for conjunctival pallor or scleral icterus, mucous membranes moist, TMs normal bilaterally, throat clear, neck supple, nontender, trachea midline. No drooling or trismus noted. No meningeal signs. No hot potato voice noted. Lungs: Clear to auscultation bilaterally. No wheezes, rales, or rhonchi. Chest nontender. Normal work of breathing, no accessory muscles used. Heart: S1S2, regular rate and rhythm without overt murmur, gallops, or rubs. No JVD. No peripheral edema Abdomen: Soft, nondistended, nontender. Normoactive bowel sounds. Negative for masses or costovertebral tenderness. Skin: Intact, warm, dry. No lesions or rashes noted. Hematologic: No petechiae or purpra. Mucosa appropriate color and normal nail bed color and refill. Extremities: No obvious deformity right elbow. Tenderness to right elbow. Moves all other extremities per self without difficulty or deficits, negative for cords or calf pain. Neurovascular unremarkable. Neuro: Awake, alert, oriented. Cranial nerves II through XII unremarkable. Cerebellum unremarkable. Motor and sensory unremarkable throughout. Exam nonfocal. Psychiatric: Mood and affect are appropriate. Normal thought process. Answering questions appropriately. Notes: *This patient was seen and evaluated during the 2019 SARS-CoV-2 novel coronavirus pandemic period. Community viral transmission is ongoing at time of this encounter and the emergency department is operating under pandemic response procedures. As stated above the patient is an 56-year-old female who presents to the emergency room with complaints of right elbow pain after falling backwards and striking her elbow on the floor. We will obtain a right elbow x-ray and I have treated her pain with Clancy. Right elbow x-ray impression: Acute nondisplaced fracture of the radial head. Fracture also suspected in the coracoid process. I have ordered a long arm ulnar gutter splint. Post application splint color sensation was WNL. And a sling was applied. I have explained to the patient the nature of the injury and the need for her to follow-up with a orthopedic surgeon in the patient verbalizes understanding. Sandip. I have given the patient a Percocet prescription for pain control. I have talked with the patient about today's findings, in addition to providing specific details for plan of care. Reassessment at the time of disposition demonstrates that the patient is in no acute distress. The patient is stable for discharge, counseling was provided and we discussed in great detail signs and symptoms that would prompt them to return to the Emergency Department. Medication, follow up and supportive care measures were reviewed and discussed. Voices understanding and is agreeable to plan of care. Denies any further questions or concerns at this time. Diagnostics: Right elbow x-ray Therapeutics: Clancy Prescription: Percocet 1 every 3-4 hours as needed for pain control Impression: Right radial head fracture Plan: 1. You were evaluated today on an emergent basis. Your complaints of right elbow pain was evaluated and found to have a impression: Acute nondisplaced fracture of the radial head. Fracture also suspected in the coracoid process. You have been fitted with a posterior splint and a arm sling. You need to wear this until you follow-up with an orthopedic surgeon. Tomorrow morning you need to call for an appointment. I gave you a prescription for Percocet for your pain control. This can cause constipation so you should take a stool softener along with this. If you have any cool fingers or numbness just loosen your splint off. If this does not help then you need to return to the emergency department. 2. You can alternate Tylenol and ibuprofen as needed for pain and fever management. 3. We encourage you to follow up with your primary care provider and/or recommended specialist in the next few days for re-evaluation and further care/management. 4. If your symptoms should worsen, new symptoms develop or any of the signs and symptoms we discussed should arise please return to the emergency room or call 911 (if needed). Definitive disposition and diagnosis as appropriate pending reevaluation and review of above. Right Arm Pain Score (Numeric/FACES): 9 - Related Data Allergies Allergy/AdvReac Type Severity Reaction Status Date / Time aspirin Allergy Swelling Verified 08/31/17 12:40 Home Meds: Home Meds traMADol HCl [Tramadol HCl] 50 mg PO Q6H PRN #16 tablet 07/26/19 [Rx] Past Medical History - Past Health History Medical/Surgical History: Denies Medical/Surgical History HEENT History: Reports: Other (See Below) Other HEENT History: has low night vision, uses reading glasses Cardiovascular History: Reports: None Respiratory History: Reports: Asthma Other Respiratory History: states "mild", uses OTC inhaler Gastrointestinal History: Reports: GERD Other Gastrointestinal History: no meds for GERD Genitourinary History: Reports: None ECOLOGICAL RISK ASSESSOR History: Reports: None Musculoskeletal History: Reports: Fracture Other Musculoskeletal History: right ankle Neurological History: Reports: Migraines Psychiatric History: Reports: None Endocrine/Metabolic History: Reports: Obesity/BMI 30+ Insulin Pump Model and Fund Manager: None Hematologic History: Reports: None Immunologic History: Reports: None Oncologic (Cancer) History: Reports: None Dermatologic History: Reports: None - Infectious Disease History Infectious Disease History: Reports: None - Past Surgical History Head Surgeries/Procedures: Reports: None Musculoskeletal Surgical History: Reports: ORIF Other Musculoskeletal Surgeries/Procedures:: ORIF right ankle, has hardware Social & Family History - Family History Family Medical History: No Pertinent Family History - Tobacco Use Second Hand Smoke Exposure: No - Caffeine Use Caffeine Use: Reports: None - Recreational Drug Use Recreational Drug Use: No Review of Systems - Review of Systems Review Of Systems: Comprehensive ROS is negative, except as noted in HPI. ED EXAM, GENERAL - Physical Exam Exam: See Below (See dictation) Course - Vital Signs Last Recorded V/S: Last Vital Signs Temp 97.5 F 07/13/21 20:17 Pulse 78 07/13/21 22:28 Resp 18 07/13/21 22:28 BP 131/80 07/13/21 22:28 Pulse Ox 99 07/13/21 22:28 - Orders/Labs/Meds Meds: Medications Discontinued Medications Generic Name Dose Route Start Last Admin Trade Name Freq PRN Reason Stop Dose Admin Hydrocodone Bitart/Acetaminophen 1 tab 07/13/21 20:42 07/13/21 20:52 Acetaminophen/Hydrocodone 325-10 Mg Tab PO 07/13/21 20:43 1 tab ONETIME ONE Administration Oxycodone/Acetaminophen 1 tab 07/13/21 21:46 07/13/21 21:55 Acetaminophen/Oxycodone 325-10 Mg Tab PO 07/13/21 21:47 1 tab ONETIME ONE Administration Departure - Departure Time of Disposition: 21:58 Disposition: Home, Self-Care 01 Condition: Good Clinical Impression: Radial head fracture, closed Qualifiers: Encounter type: initial encounter Fracture alignment: nondisplaced Laterality: right Qualified Code(s): S52.124A - Nondisplaced fracture of head of right radius, initial encounter for closed fracture - Discharge Information *PRESCRIPTION DRUG MONITORING PROGRAM REVIEWED*: No *COPY OF PRESCRIPTION DRUG MONITORING REPORT IN PATIENT NICHOLE: No Instructions: Radial Fracture Referrals: Lenin Main MD [Primary Care Provider] - Forms: ED Department Discharge Additional Instructions: The following information is given to patients seen in the emergency department who are being discharged to home. This information is to outline your options for follow-up care. We provide all patients seen in our emergency department with a follow-up referral. The need for follow-up, as well as the timing and circumstances, are variable depending upon the specifics of your emergency department visit. If you don't have a primary care physician on staff, we will provide you with a referral. We always advise you to contact your personal physician following an emergency department visit to inform them of the circumstance of the visit and for follow-up with them and/or the need for any referrals to a consulting specialist. The emergency department will also refer you to a specialist when appropriate. This referral assures that you have the opportunity for follow-up care with a specialist. All of these measure are taken in an effort to provide you with optimal care, which includes your follow-up. Under all circumstances we always encourage you to contact your private physician who remains a resource for coordinating your care. When calling for follow-up care, please make the office aware that this follow-up is from your recent emergency room visit. If for any reason you are refused follow-up, please contact the [facility] Emergency Department at and asked to speak to the emergency department charge nurse. [facility] - [facility] [address], [address] [place] [address] [facility] [address] [place] [address] Plan: 1. You were evaluated today on an emergent basis. Your complaints of right elbow pain was evaluated and found to have a Bones: Acute nondisplaced fracture of the radial head. Fracture also suspected in the coracoid process. You have been fitted with a posterior splint and a arm sling. You need to wear this until you follow-up with an orthopedic surgeon. Tomorrow morning you need to call for an appointment. I gave you a prescription for Percocet for your pain control. This can cause constipation so you should take a stool softener along with this. If you have any cool fingers or numbness just loosen your splint off. If this does not help then you need to return to the emergency department. 2. You can alternate Tylenol and ibuprofen as needed for pain and fever management. 3. We encourage you to follow up with your primary care provider and/or recommended specialist in the next few days for re-evaluation and further care/management. 4. If your symptoms should worsen, new symptoms develop or any of the signs and symptoms we discussed should arise please return to the emergency room or call 911 (if needed). Sepsis Event Note (ED) - Evaluation Sepsis Screening Result: No Definite Risk
--- NOTE | 2021-07-13 21:25 | CR ---
Indication: Trauma. Technique: Right elbow 4 views. Comparison: None. Findings/Impression: Bones: Acute nondisplaced fracture of the radial head. Fracture also suspected in the coracoid process. Relatively large free bone fragment visualized anteriorly on the lateral image. Joint spaces: Large joint effusion is present. There are also degenerative changes. Soft tissues: Unremarkable. Dictated by Mohit Fong MD @ 07/13/2021 9:25:19 PM (Electronically Signed)
[2021-07-13] MEDS ORDERED: Acetaminophen/oxyCODONE 325-10 MG Tab PO ONE (21:46)
== END 2021-07-13 22:29 | disposition home or self-care (01) ==
LOC: MW.ED 20:04
DX: S52.124A Nondisplaced fracture of head of right radius, initial encounter for closed fracture (principal); E66.9 Obesity, unspecified; Z68.36 Body mass index [BMI] 36.0-36.9, adult; Z88.8 Allergy status to other drugs, medicaments and biological substances; W18.09XA Striking against other object with subsequent fall, initial encounter
CPT/HCPCS: 29105; 73080; 99283; A9270; 24640